=== PATIENT | female | born 1960 | race African-American/Black ===

== ENCOUNTER 2017-02-13 09:40 | Emergency (ER) | payer OTHER ==
[~2017-02-13] VITALS: Ht 160 cm; Wt 52.2 kg
[2017-02-13 10:42] LABS: ABSOLUTE NEUTROPHILS 10.7 thou/uL (1.4-8.2); BASOPHILS 0.2 % (0.0-2.0); EOSINOPHILS 0.4 % (0.0-3.0); HEMATOCRIT 44.1 % (37.0-47.0); HEMOGLOBIN 14.9 gm/dL (12.0-15.0); MCH 29.4 pg (26.0-34.0); MCHC 33.7 g/dL (28.0-37.0); MCV 87.1 fL (80.0-100.0); PLATELET COUNT 141 thou/uL (150-400); POLYS 80.4 % (36.0-66.0); RBC 5.06 mil/uL (4.20-5.00); WBC 13.3 thou/uL (4.0-11.0)
[2017-02-13 10:45] LABS: MANUAL DIFF NO
[2017-02-13 10:51] LABS: CALCIUM 9.7 mg/dL (8.5-10.1); CREATININE 1.1 mg/dL (0.6-1.0); POTASSIUM 3.5 mmol/L (3.5-5.1)
[2017-02-13] MEDS ORDERED: BACTRIM DS TAB1 EACH PO (11:02)
[2017-02-13] MEDS ORDERED: NORCO 5-325 TA1 EACH PO (11:02)
[2017-02-13] MEDS ORDERED: KEFLEX500 MG PO (11:02)
[2017-02-13 11:30] VITALS: BP 135/71
== END 2017-02-13 11:04 | disposition home or self-care (01) ==
LOC: ER 09:40
PROVIDERS: Emergency Medicine
DX: N76.4 Abscess of vulva (principal); F17.210 Nicotine dependence, cigarettes, uncomplicated; Z88.5 Allergy status to narcotic agent; Z98.890 Other specified postprocedural states

== ENCOUNTER 2017-02-13 12:52 | Emergency (ER) | payer OTHER ==
[~2017-02-13] VITALS: Ht 162.6 cm; Wt 51.7 kg
[~2017-02-13 12:52] MED LIST: BACTRIM DS TAB1 EACH PO; KEFLEX500 MG PO; NORCO 5-325 TA1 EACH PO
[2017-02-13 14:01] LABS: HEMOGLOBIN 13.6 gm/dL (12.0-15.0); MCH 29.7 pg (26.0-34.0); MCV 87.3 fL (80.0-100.0); RBC 4.58 mil/uL (4.20-5.00); RDW 13.9 % (10.5-14.5); WBC 15.5 thou/uL (4.0-11.0)
[2017-02-13 14:37] VITALS: BP 123/64
== END 2017-02-13 14:19 | disposition home or self-care (01) ==
LOC: ER 12:52
PROVIDERS: Physician Assistant
DX: Z48.01 Encounter for change or removal of surgical wound dressing (principal); R42 Dizziness and giddiness; F17.210 Nicotine dependence, cigarettes, uncomplicated; F10.99 Alcohol use, unspecified with unspecified alcohol-induced disorder; Z98.890 Other specified postprocedural states; Z88.5 Allergy status to narcotic agent

== ENCOUNTER → 2017-02-27 | Outpatient (CLI) | payer OTHER | LOC: HYPER 07:17 | DX: T81.89XA Other complications of procedures, not elsewhere classified, initial encounter (principal); L03.314 Cellulitis of groin; F17.210 Nicotine dependence, cigarettes, uncomplicated; Y83.8 Other surgical procedures as the cause of abnormal reaction of the patient, or of later complication, without mention of misadventure at the time of the procedure ==

== ENCOUNTER 2019-11-09 13:41 | Emergency (ER) | payer OTHER ==
[~2019-11-09] VITALS: Ht 157.5 cm; Wt 59.0 kg
[2019-11-09] MEDS ORDERED: HYDROCHLOROTH12.5 M2 PO (13:54)
[2019-11-09 14:21] LABS: ABSOLUTE NEUTROPHILS 3.5 thou/uL (1.4-8.2); BASOPHILS 0.9 % (0.0-2.0); EOSINOPHILS 2.1 % (0.0-3.0); HEMATOCRIT 45.1 % (37.0-47.0); HEMOGLOBIN 15.2 gm/dL (12.0-15.0); LYMPHOCYTES 28.1 % (24.0-44.0); MCH 30.1 pg (26.0-34.0); MCHC 33.8 g/dL (28.0-37.0); PLATELET COUNT 158 thou/uL (150-400); POLYS 59.9 % (36.0-66.0); RBC 5.07 mil/uL (4.20-5.00); RDW 14.1 % (10.5-14.5); WBC 5.9 thou/uL (4.0-11.0)
[2019-11-09 14:31] LABS: ANION GAP 10 mmol/L (7-16); BUN 13 mg/dL (7-18); CALCIUM 9.8 mg/dL (8.5-10.1); CHLORIDE 105 mmol/L (98-107); CO2 24 mmol/L (21-32); CREATININE 1.2 mg/dL (0.6-1.0); GLUCOSE 93 mg/dL (74-106); POTASSIUM 3.7 mmol/L (3.5-5.1); SODIUM 139 mmol/L (136-145)
[2019-11-09 14:34] LABS: APTT 26.6 Seconds (24.5-32.8); PROTIME 9.7 Seconds (9.3-11.4)
[2019-11-09 14:40] LABS: ALBUMIN 3.8 g/dL (3.4-5.0); SGOT 26 U/L (15-37); SGPT 26 U/L (30-65); TOTAL BILIRUBIN 0.5 mg/dL (<0.1-1.0); TOTAL PROTEIN 7.5 g/dL (6.4-8.2); TROPONIN-I <0.06 ng/mL (<0.06)
[2019-11-09] MEDS ORDERED: PREDNISONE 20 M20 M1 PO (15:47)
[2019-11-09] MEDS ORDERED: VALTREX1000 MG PO (15:47)
[2019-11-09] MEDS ORDERED: REFRESH LACRI-3.5 GM OPHTHALMIC (15:49)
[2019-11-09 16:00] VITALS: BP 163/82
--- NOTE | 2019-11-10 07:55 | EKG ---
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: [facility] : 1960 Requested By: Rafal Robertson Order Number: [id number] MD: Ashvin Harden Measurements Intervals [place] Rate: 67 P: 50 MI: 169 QRS: 25 QRSD: 83 T: 57 QT: 418 QTc: 442 Interpretive Statements Sinus rhythm RSR' in V1 or V2, right VCD Minimal ST elevation, anterior leads No previous ECG available for comparison Electronically Signed On 11-10-2019 7:54:05 CDT by Ashvin Harden [email or web address] <ELECTRONICALLY SIGNED> By: Ashvin Harden MD, [facility] 11/10/19 0754 1415 1415 Ashvin Harden MD, [facility] /EPI
== END 2019-11-09 16:04 | disposition home or self-care (01) ==
LOC: ER 13:41
PROVIDERS: Emergency Medicine
DX: G51.0 Bell's palsy (principal); F17.210 Nicotine dependence, cigarettes, uncomplicated; R41.82 Altered mental status, unspecified; Z88.5 Allergy status to narcotic agent; Z79.899 Other long term (current) drug therapy